=== PATIENT | female | born 1955 | race Two or more races ===

== ENCOUNTER 2024-03-03 17:45 | Emergency (ER) | payer BC, OTHER ==
[~2024-03-03] VITALS: Ht 149.9 cm; Wt 50.0 kg
[2024-03-03 17:55] VITALS: BP 131/70; PULSE 98; O2SAT 99
--- NOTE | 2024-03-03 18:03 | ED.PDOC ---
Musculoskeletal HPI Comments 61y F who presents to the ED via EMS for chief complaint of fall injury. Per EMS , pt was at local gym and states while in locker room, pt states she was walking and did not notice water on the ground and pt slipped and fell on her L hand, using her L hand to help break her fall. Pt denies any associated loss of consciousness but states she has been having L upper extremity pain and has been unable to move her L hand. Upon EMS arrival, pt also started to state she was having L sided neck pain and pt was placed in c-collar and brought to the ED. Pt in the ED, otherwise denies any other symptoms at this time. Chief Complaint: Fall Injury Time Seen by MD: 18:01 Primary Care Provider: UNKNOWN Reviewed Notes: Nurses Notes, Car Inspector Notes, Medications, Allergies (No allergies to medications) Allergies: Coded Allergies: NO KNOWN ALLERGIES (Unverified , 03/03/24) Information Source: Patient Mode of Arrival: EMS Brought in by: EMS Location: Left Extremity Location: Elbow, Shoulder Timing: Hours Prehospital treatment: None Severity: Moderate Able to Move Extremity: Yes Bear Weight: Limited Pain: Moderate Mechanism: Spontaneous Circumstances: Fall Onset of Symptoms: Spontaneous Symptoms: Pain DVT Risk Factors: NONE Last Tetanus: Unknown Associated signs and symptoms: Shoulder pain, Arm pain Past Medical History PAST MEDICAL HISTORY: Denies Surgical History: Denies all surgeries 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: 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 Family History Family History: Reviewed,noncontributory to illness Social History Smoker: Non-Smoker Alcohol: Denies ETOH Use Drugs: Denies Drug Use Lives In: Home Constitutional: denies: chills, diaphoresis, fatigue, fever, malaise, sweats, weakness, others EENTM: denies: blurred vision, double vision, ear bleeding, ear discharge, ear drainage, ear pain, ear ringing, eye pain, eye redness, hearing loss, mouth pain, mouth swelling, nasal discharge, nose bleeding, nose congestion, nose pain, photophobia, tearing, throat pain, throat swelling, voice changes, others Respiratory: denies: cough, hemoptysis, orthopnea, SOB at rest, shortness of breath, SOB with excertion, stridor, wheezing, others Cardiovascular: denies: chest pain, dizzy spells, diaphoresis, Dyspnea on exertion, edema, irregular heart beat, left arm pain, lightheadedness, palpitations, PND, syncope, others Gastrointestinal: denies: abdomen distended, abdominal pain, blood streaked bowels, constipated, diarrhea, dysphagia, difficulty swallowing, hematemesis, melena, nausea, poor appetite, poor fluid intake, rectal bleeding, rectal pain, vomiting, others Genitourinary: denies: abnormal vagina bleeding, burning, dyspareunia, dysuria, flank pain, frequency, hematuria, incontinence, pain, , vagina discharge, urgency, others Neurological: denies: dizziness, fainting, headache, left sided numbness, left sided weakness, numbness, paresthesia, pre-existing deficit, right sided numbness, right sided weakness, seizure, speech problems, tingling, tremors, weakness, others Musculoskeletal: reports: joint pain, joint swelling; denies: back pain, gout, muscle pain, muscle stiffness, neck pain, others Integumetry: denies: bruises, change in color, change in hair/nails, dryness, laceration, lesions, lumps, rash, wounds, others Allergic/Immunocompromised: denies: Difficulty Healing, Frequent Infections, Hives, Itching, others Hematologic/Lymphatic: denies: anemia, blood clots, easy bleeding, easy bruising, swollen glands, others Endocrine: denies: excessive hunger, excessive sweating, excessive thirst, excessive urination, flushing, intolerance to cold, intolerance to heat, unexplained weight gain, unexplained weight loss, others Psychiatric: denies: anxiety, bipolar disorder, depression, hopeless, panic disorder, schizophrenia, sleepless, suicidal, others All Other Systems: Reviewed and Negative Physical Exam General Appearance: Moderate Distress HEENT: Normal ENT Inspection, Pharynx Normal, TMs Normal Neck: Limited Range of Motion, Normal, Normal Inspection, Tender Lateral Respiratory: Chest Non-Tender, Lungs Clear, No Accessory Muscle Use, No Respiratory Distress, Normal Breath Sounds Cardiovascular: No Edema, No JVD, No Murmur, No Gallop, Normal Peripheral Pulses, Regular Rate/Rhythm Breast Exam: Deferred Gastrointestinal: No Organomegaly, Non Tender, No Pulsatile Mass, Normal Bowel Sounds, Soft Genitalia: Deferred Pelvic: Deferred Rectal: Deferred Extremities: No calf tenderness, Normal capillary refill, No pedal edema Musculoskeletal : Location: Left Extremity Location: Shoulder Apperance: Limited ROM, Tenderness: Moderate Neurologic: Alert, supervisor in circuit testing II-XII nml as Tested, No Motor Deficits, Normal Affect, Normal Mood, No Sensory Deficits Cerebellar Function: Normal Reflexes: Normal Skin: Dry, Normal Color, Warm Lymphatic: No Adenopathy Was a procedure done? Was a procedure done?: No Differential Diagnosis EXT Differential Diagnosis: Fracture, Sprain, Dislocation, Contusion X-Ray, Labs, Meds, VS Vital Signs Date Time Temp Pulse Resp B/P (MAP) Pulse Ox O2 Delivery O2 Flow Rate FiO2 03/03/24 17:55 98.0 98 18 131/70 (90) 99 EXAM: XY L SHOULDER 2+ VIEW XRAY Findings/Impression: 2 views of the left shoulder. Impacted left humeral neck fracture. There is no evidence of dislocation, blastic, or lytic lesions. No radiopaque foreign bodies. No joint effusion or superficial soft tissue abnormalities. EXAM: XY CERVICAL SPINE 3V Impression: 1. No acute osseous abnormality. 2. Straightening of the cervical lordosis which may be positional versus muscle spasm. The patient was placed in a shoulder sling as well as a long arm splint The patient will follow up with the primary care doctor The patient refused any pain medication at this time The patient was discharged The patient was to follow up with the orthopedic surgeon Images Reviewed?: Images reviewed and evaluated by me Time of 1ST Reevaluation: 18:35 Reevaluation 1ST: Unchanged Patient Education/Counseling: Diagnosis, Treatment, Prognosis, Need For Follow Up Family Education/Counseling: No Family Present Departure 1 Departure Time of Disposition: 18:40 Impression: Primary Impression: Fracture of neck of left humerus Qualified Codes: S42.212A - Unspecified displaced fracture of surgical neck of left humerus, initial encounter for closed fracture Additional Impression: History of fall Disposition: 01 HOME / SELF CARE / HOMELESS Condition: Fair Discharged With: Self Critical Care Note Critical Care Time?: No Stability Stability form required: No Heart Score Heart Score: Heart Score Response (Comments) Value History N/A 0 EKG N/A 0 Age N/A 0 Risk Factors N/A 0 Troponin N/A 0 Total 0 I personally scribed for BOOGIE THOMAS MD ([email or web address]) on 03/03/24 at 18:03. Electronically submitted by Iesha Saez ([email or web address]). I personally scribed for BOOGIE THOMAS MD ([email or web address]) on 03/03/24 at 18:33. Electronically submitted by Iesha Saez ([email or web address]). BOOGIE THOMAS MD Mar 03, 2024 18:03
--- NOTE | 2024-03-03 18:30 | DVH ---
EXAM: XY L SHOULDER 2+ VIEW XRAY CLINICAL HISTORY: trauma COMPARISON: None TECHNIQUE: XY L SHOULDER 2+ VIEW XRAY Findings/Impression: 2 views of the left shoulder. Impacted left humeral neck fracture. There is no evidence of dislocation, blastic, or lytic lesions. No radiopaque foreign bodies. No joint effusion or superficial soft tissue abnormalities.
--- NOTE | 2024-03-03 18:31 | DVH ---
EXAM: XY CERVICAL SPINE 3V INDICATION: trauma COMPARISON: None TECHNIQUE: 3 views of the cervical spine were obtained. Findings: There is no evidence of an acute fracture, spondylolysis, or spondylolisthesis. The vertebral body heights and disc spaces are well-maintained. Straightening of the cervical lordosi s. No blastic or lytic lesions are appreciated. No radiopaque foreign bodies. No superficial soft tissue abnormalities. Impression: 1. No acute osseous abnormality. 2. Straightening of the cervical lordosis which may be positional versus muscle spasm.
[2024-03-03 19:57] VITALS: RESP 18
== END 2024-03-03 20:00 | disposition home or self-care (01) ==
LOC: EDBD 17:45 → ER 17:45
DX: S42.212A Unspecified displaced fracture of surgical neck of left humerus, initial encounter for closed fracture (principal); W01.198A Fall on same level from slipping, tripping and stumbling with subsequent striking against other object, initial encounter; Y93.01 Activity, walking, marching and hiking; Y92.39 Other specified sports and athletic area as the place of occurrence of the external cause; Y99.8 Other external cause status
CPT/HCPCS: 29105; 72040; 73030